=== PATIENT | female | born 1965 | race Caucasian/White ===

== ENCOUNTER 2017-07-19 12:39 | Emergency (ER) | payer OTHER ==
[~2017-07-19] VITALS: Ht 165.1 cm; Wt 78.1 kg
[~2017-07-19 12:39] MED LIST: NO HOME MEDS
[2017-07-19 13:12] LABS: HEMATOCRIT 40.4 % (36.0-46.0); MCH 28.1 PG (29.0-34.0); MCHC 32.7 G/DL (30.0-36.0); MCV 86.1 FL (83-99); MEAN PLAT.VOLUME 8.7 uM^3 (9.5-12.4); PLATELET COUNT 283 K/uL (156-360); RBC DIS.WIDTH-CV 12.9 % (11.8-14.6); RBC DIS.WIDTH-SD 40.4 % (39-53); RED BLOOD COUNT 4.69 M/uL (3.80-5.20); WHITE BLOOD COUNT 9.4 K/uL (4.1-10.2)
[2017-07-19 13:24] LABS: CHLORIDE 103 mEq/L (99-109); POTASSIUM 4.1 mEq/L (3.7-5.4); SODIUM 136 mEq/L (136-147)
[2017-07-19 13:26] LABS: GLUCOSE 92 mg/dL (70-99)
[2017-07-19 13:27] LABS: ANION GAP 13 MEQ/L (2-14)
[2017-07-19 13:30] LABS: GFR ESTIMATE (CALCULATED) > 59 mL/min/; UREA NITROGEN (BUN) 10 mg/dL (9-23)
[2017-07-19] MEDS ORDERED: PROVENTIL HFA6.7 GM IH (14:00)
[2017-07-19 14:14] VITALS: BP 110/74
[2017-07-21] MEDS ORDERED: VENTOLIN HFA18 GM IH (11:00)
[2017-07-21] MEDS ORDERED: KLONOPIN0.5 M1 PO (11:01)
[2017-07-21] MEDS ORDERED: PROZAC40 MG PO (11:01)
[2017-07-21] MEDS ORDERED: TESSALON PERLE100 MG PO (11:01)
[2017-07-21] MEDS ORDERED: CHILDREN'S FLO9.9 ML BOTH NARES (11:02)
[2017-07-21] MEDS ORDERED: LEVAQUIN750 MG PO (11:02)
[2017-07-21] MEDS ORDERED: PREDNISONE5 M1 PO (11:04)
[2017-07-21] MEDS ORDERED: ZOCOR40 MG PO (11:04)
[2017-07-21] MEDS ORDERED: TRAZODONE HCL50 MG PO (11:04)
== END 2017-07-19 14:15 | disposition home or self-care (01) ==
LOC: EME 12:39
DX: R91.8 Other nonspecific abnormal finding of lung field (principal); F17.200 Nicotine dependence, unspecified, uncomplicated; I10 Essential (primary) hypertension; Z88.0 Allergy status to penicillin
CPT/HCPCS: 80048; 85027; 93005; 94640; 99281; 99284

== ENCOUNTER → 2017-07-22 | Outpatient (CLI) | payer OTHER ==
[~2017-07-22] VITALS: Ht 165.1 cm; Wt 78.0 kg
[~2017-07-22] MED LIST changes: +CHILDREN'S FLO9.9 ML BOTH NARES; +KLONOPIN0.5 M1 PO; +LEVAQUIN750 MG PO; +PREDNISONE5 M1 PO; +PROVENTIL HFA6.7 GM IH; +PROZAC40 MG PO; +TESSALON PERLE100 MG PO; +TRAZODONE HCL50 MG PO; +VENTOLIN HFA18 GM IH; +ZOCOR40 MG PO
== END | disposition home or self-care (01) ==
LOC: OPR 12:38 → EDSTATUS 13:00
PROC: 0BBF3ZX Excision of Right Lower Lung Lobe, Percutaneous Approach, Diagnostic (ICD-10-PCS; principal; 2017-07-22)
DX: C34.31 Malignant neoplasm of lower lobe, right bronchus or lung (principal); F17.210 Nicotine dependence, cigarettes, uncomplicated; Z80.1 Family history of malignant neoplasm of trachea, bronchus and lung; F43.10 Post-traumatic stress disorder, unspecified; F32.9 Major depressive disorder, single episode, unspecified; E78.5 Hyperlipidemia, unspecified; Z86.010 Personal history of colon polyps; Z88.0 Allergy status to penicillin; Z80.8 Family history of malignant neoplasm of other organs or systems
CPT/HCPCS: 71010; 77012; 88305; 88341 TC; 88342 TC; J3010

== ENCOUNTER 2017-08-05 06:52 | Day surgery (SDC) | payer OTHER ==
[~2017-08-05] VITALS: Ht 165.1 cm; Wt 78.1 kg
[~2017-08-05 06:52] MED LIST changes: +ALBUTEROL2.5 MG/0.5 IH; +ALLERGY RELIE15.8 ML BOTH NARES; +ANORO ELLIPTA1 EACH IH; +CHANTIX1 MG PO; +PREDNISONE10 MG PO; +ZITHROMAX500 MG PO
[2017-08-05 07:14] VITALS: BP 114/57
[2017-08-05 07:23] LABS: BASOPHIL COUNT 0.1 K/uL (0-0.1); EOSINOPHIL COUNT 0.1 K/uL (0-0.3); HEMATOCRIT 38.5 % (36.0-46.0); IMMATURE GRANULOCYTE (%) 0.3 % (0.0-0.7); INSTRUMENT ABS NEUTROPHIL CT 8.2 K/uL; LYMPHOCYTE COUNT 3.5 K/uL (1.0-2.8); MCH 27.8 PG (29.0-34.0); MCHC 32.2 G/DL (30.0-36.0); MCV 86.3 FL (83-99); MEAN PLAT.VOLUME 8.8 uM^3 (9.5-12.4); MONOCYTE (%) 3.9 % (3-12); MONOCYTE COUNT 0.5 K/uL (0-0.8); NEUTROPHIL (%) 65.8 % (45-76); NEUTROPHIL COUNT 8.2 K/uL (1.8-6.4); PLATELET COUNT 311 K/uL (156-360); RBC DIS.WIDTH-CV 13.2 % (11.8-14.6); RBC DIS.WIDTH-SD 41.1 % (39-53); RED BLOOD COUNT 4.46 M/uL (3.80-5.20); WHITE BLOOD COUNT 12.4 K/uL (4.1-10.2)
[2017-08-05 07:30] LABS: PROTHROMBIN TIME 11.4 SEC (10.2-12.9)
[2017-08-05 07:49] LABS: ALKALINE PHOSPHATASE 96 IU/L (3-129); ANION GAP 9 MEQ/L (2-14); CHLORIDE 107 MEQ/L (99-109); GFR ESTIMATE (CALCULATED) > 59 mL/min/; GLUCOSE 93 mg/dL (70-99); POTASSIUM 4.1 MEQ/L (3.7-5.4); SAMPLE HEMOLYSIS CHECK 0; SAMPLE ICTERIC CHECK 0; SAMPLE LIPEMIA CHECK 0; SODIUM 141 MEQ/L (136-147); TOTAL BILIRUBIN 0.3 MG/DL (0.0-1.0); UREA NITROGEN (BUN) 11 mg/dL (9-23)
[2017-08-05] MEDS ORDERED: HYDROCODON-ACE1 EAC7 PO (11:08)
[2017-08-05] MEDS ORDERED: COLACE100 MG PO (11:08)
[2017-08-05 12:16] VITALS: BP 100/58
[2017-08-05 13:14] VITALS: BP 99/55
[2017-08-05 14:55] VITALS: BP 111/64
== END 2017-08-05 15:00 | disposition home or self-care (01) ==
LOC: SDC 06:52
PROVIDERS: Thoracic Surgery (Cardiothoracic Vascular Surgery)
DX: C34.31 Malignant neoplasm of lower lobe, right bronchus or lung (principal); E78.5 Hyperlipidemia, unspecified; F32.9 Major depressive disorder, single episode, unspecified; Z80.1 Family history of malignant neoplasm of trachea, bronchus and lung; Z88.0 Allergy status to penicillin; F17.200 Nicotine dependence, unspecified, uncomplicated
CPT/HCPCS: 80053; 85025; 85610; 86850; 86900; 86901; 86920; 87070; 87205; 88305; 94640; J0330; J0690; J1100; J1170; J2250; J2405; J2710; J3010

== ENCOUNTER → 2017-08-15 | Outpatient (CLI) | payer OTHER ==
[~2017-08-15] MED LIST changes: +COLACE100 MG PO; +HYDROCODON-ACE1 EAC7 PO
[2017-08-15 08:43] LABS: BASE EXCESS 0.9 mEq/L (-3 to +3); BICARBONATE 24.2 mEq/L (22-26); CARBOXY HGB 2.7 % (0-5); METHEMOGLOBIN 1.1 % (0-1.5); PCO2 34 mm Hg (35-45); PO2 70 mm Hg (80-100); pH 7.46 (7.35-7.45)
[2017-08-15 08:44] LABS: COMMENTS - BLOOD GASES +C; FI02 21 %; SITE RR +A; TOTAL RESP RATE 22 resp/min
== END | disposition home or self-care (01) ==
LOC: RES 07:41
PROVIDERS: Thoracic Surgery (Cardiothoracic Vascular Surgery)
DX: J98.4 Other disorders of lung (principal); R94.2 Abnormal results of pulmonary function studies; C34.90 Malignant neoplasm of unspecified part of unspecified bronchus or lung
CPT/HCPCS: 36600; 82803; 93005; 94060; 94726; 94729

== ENCOUNTER 2017-11-09 21:11 | Inpatient (IN) | payer OTHER ==
[~2017-11-09] VITALS: Ht 165.1 cm; Wt 80.2 kg
[~2017-11-09 21:11] MED LIST changes: +IMODIUM A-D2 M2 PO; +TARCEVA150 MG PO
[2017-11-10 07:16] VITALS: BP 113/56
[2017-11-10 19:45] VITALS: BP 100/56
[2017-11-10 20:00] VITALS: BP 110/68
[2017-11-10 21:00] VITALS: BP 87/57
[2017-11-10 22:00] VITALS: BP 98/62
[2017-11-10 23:00] VITALS: BP 93/66
[2017-11-11] VITALS (15 sets, daily range): BP systolic 0–149; BP diastolic 0–80
[2017-11-11 07:54] LABS: HEMATOCRIT 27.8 % (36.0-46.0); MCH 28.8 PG (29.0-34.0); MCHC 32.4 G/DL (30.0-36.0); MCV 88.8 FL (83-99); RBC DIS.WIDTH-CV 14.4 % (11.8-14.6); RBC DIS.WIDTH-SD 46.3 % (39-53); WHITE BLOOD COUNT 9.1 K/uL (4.1-10.2)
[2017-11-11 08:05] LABS: PLATELET COUNT 176 K/uL (156-360); RED BLOOD COUNT 3.13 M/uL (3.80-5.20)
[2017-11-11 08:13] LABS: CHLORIDE 105 MEQ/L (99-109); CREATININE 0.8 MG/DL (0.6-1.3); GFR ESTIMATE (CALCULATED) > 59 mL/min/; GLUCOSE 121 mg/dL (70-99); POTASSIUM 4.6 MEQ/L (3.7-5.4); SODIUM 137 MEQ/L (136-147); UREA NITROGEN (BUN) 8 mg/dL (9-23)
[2017-11-12] VITALS (23 sets, daily range): BP systolic 86–145; BP diastolic 51–97
[2017-11-12 05:04] LABS: HEMATOCRIT 27.9 % (36.0-46.0); HEMOGLOBIN 8.9 G/DL (11.9-15.5); MCH 28.5 PG (29.0-34.0); MCHC 31.9 G/DL (30.0-36.0); MCV 89.4 FL (83-99); PLATELET COUNT 203 K/uL (156-360); RBC DIS.WIDTH-CV 14.3 % (11.8-14.6); RBC DIS.WIDTH-SD 46.8 % (39-53); RED BLOOD COUNT 3.12 M/uL (3.80-5.20); WHITE BLOOD COUNT 11.1 K/uL (4.1-10.2)
[2017-11-12 05:17] LABS: CHLORIDE 108 mEq/L (99-109); POTASSIUM 4.7 mEq/L (3.7-5.4); SODIUM 137 mEq/L (136-147)
[2017-11-12 05:18] LABS: GLUCOSE 122 mg/dL (70-99)
[2017-11-12 05:22] LABS: CREATININE 1.1 mg/dL (0.6-1.3); GFR ESTIMATE (CALCULATED) 55 mL/min/
[2017-11-12 05:23] LABS: UREA NITROGEN (BUN) 13 mg/dL (9-23)
[2017-11-13] VITALS (24 sets, daily range): BP systolic 77–117; BP diastolic 44–68
[2017-11-13 05:41] LABS: HEMATOCRIT 25.9 % (36.0-46.0); HEMOGLOBIN 8.2 G/DL (11.9-15.5); MCH 28.3 PG (29.0-34.0); MCHC 31.7 G/DL (30.0-36.0); MCV 89.3 FL (83-99); PLATELET COUNT 171 K/uL (156-360); RBC DIS.WIDTH-CV 14.4 % (11.8-14.6); WHITE BLOOD COUNT 9.9 K/uL (4.1-10.2)
[2017-11-13 06:01] LABS: CHLORIDE 106 MEQ/L (99-109); CREATININE 0.7 MG/DL (0.6-1.3); GFR ESTIMATE (CALCULATED) > 59 mL/min/; GLUCOSE 122 mg/dL (70-99); POTASSIUM 4.5 MEQ/L (3.7-5.4); SODIUM 139 MEQ/L (136-147); UREA NITROGEN (BUN) 9 mg/dL (9-23)
[2017-11-14] VITALS (13 sets, daily range): BP systolic 90–123; BP diastolic 50–77
[2017-11-14 06:26] LABS: HEMATOCRIT 24.9 % (36.0-46.0); HEMOGLOBIN 7.8 G/DL (11.9-15.5); MCH 27.9 PG (29.0-34.0); MCHC 31.3 G/DL (30.0-36.0); MCV 88.9 FL (83-99); PLATELET COUNT 193 K/uL (156-360); RBC DIS.WIDTH-SD 45.1 % (39-53); WHITE BLOOD COUNT 7.4 K/uL (4.1-10.2)
[2017-11-14 06:45] LABS: CHLORIDE 104 MEQ/L (99-109); CREATININE 0.8 MG/DL (0.6-1.3); GFR ESTIMATE (CALCULATED) > 59 mL/min/; GLUCOSE 99 mg/dL (70-99); POTASSIUM 4.6 MEQ/L (3.7-5.4); SODIUM 142 MEQ/L (136-147); UREA NITROGEN (BUN) 8 mg/dL (9-23)
[2017-11-15] VITALS (10 sets, daily range): BP systolic 115–142; BP diastolic 65–92
[2017-11-15 05:55] LABS: HEMATOCRIT 24.8 % (36.0-46.0); MCH 28.1 PG (29.0-34.0); MCHC 32.3 G/DL (30.0-36.0); PLATELET COUNT 218 K/uL (156-360); RBC DIS.WIDTH-CV 13.9 % (11.8-14.6); RBC DIS.WIDTH-SD 43.8 % (39-53); RED BLOOD COUNT 2.85 M/uL (3.80-5.20); WHITE BLOOD COUNT 6.8 K/uL (4.1-10.2)
[2017-11-15 06:20] LABS: CHLORIDE 104 MEQ/L (99-109); CREATININE 0.9 MG/DL (0.6-1.3); GFR ESTIMATE (CALCULATED) > 59 mL/min/; GLUCOSE 110 mg/dL (70-99); POTASSIUM 4.2 MEQ/L (3.7-5.4); SODIUM 140 MEQ/L (136-147); UREA NITROGEN (BUN) 9 mg/dL (9-23)
[2017-11-16] VITALS: BP 114/75
[2017-11-16 05:00] VITALS: BP 141/73
[2017-11-16 08:00] VITALS: BP 134/64
[2017-11-16 12:00] VITALS: BP 134/65
[2017-11-16 17:15] VITALS: BP 136/68
[2017-11-16 19:20] VITALS: BP 125/60
[2017-11-17] VITALS (7 sets, daily range): BP systolic 116–130; BP diastolic 60–72
[2017-11-18 00:09] VITALS: BP 114/60; BP 126/62
[2017-11-18 05:11] LABS: HEMOGLOBIN 9.6 G/DL (11.9-15.5); MCH 28.2 PG (29.0-34.0); PLATELET COUNT 279 K/uL (156-360); RBC DIS.WIDTH-CV 14.1 % (11.8-14.6); RBC DIS.WIDTH-SD 45.6 % (39-53); RED BLOOD COUNT 3.41 M/uL (3.80-5.20); WHITE BLOOD COUNT 8.7 K/uL (4.1-10.2)
[2017-11-18 05:42] LABS: CHLORIDE 102 MEQ/L (99-109); CREATININE 0.7 MG/DL (0.6-1.3); GFR ESTIMATE (CALCULATED) > 59 mL/min/; GLUCOSE 112 mg/dL (70-99); POTASSIUM 4.2 MEQ/L (3.7-5.4); SODIUM 141 MEQ/L (136-147); UREA NITROGEN (BUN) 8 mg/dL (9-23)
[2017-11-18 07:34] VITALS: BP 107/59
[2017-11-18 11:28] VITALS: BP 118/58
[2017-11-18] MEDS ORDERED: MOTRIN600 MG PO (20:13)
[2017-11-18] MEDS ORDERED: HYDROCODON-ACE1 EAC7 PO (20:13)
[2017-11-18] MEDS ORDERED: K-DUR20 MEQ PO (20:13)
[2017-11-18] MEDS ORDERED: DIGOXIN250 MCG PO (20:13)
[2017-11-18] MEDS ORDERED: FUROSEMIDE20 MG PO (20:13)
[2017-11-18] MEDS ORDERED: LOPRESSOR25 MG PO (20:13)
[2017-11-19 00:27] VITALS: BP 123/68
[2017-11-19 06:17] LABS: HEMATOCRIT 33.1 % (36.0-46.0); HEMOGLOBIN 10.6 G/DL (11.9-15.5); MCV 87.3 FL (83-99); PLATELET COUNT 322 K/uL (156-360); RBC DIS.WIDTH-CV 14.1 % (11.8-14.6); RBC DIS.WIDTH-SD 44.8 % (39-53); RED BLOOD COUNT 3.79 M/uL (3.80-5.20); WHITE BLOOD COUNT 8.4 K/uL (4.1-10.2)
[2017-11-19 06:44] LABS: CHLORIDE 103 MEQ/L (99-109); CREATININE 0.8 MG/DL (0.6-1.3); GFR ESTIMATE (CALCULATED) > 59 mL/min/; GLUCOSE 104 mg/dL (70-99); POTASSIUM 4.4 MEQ/L (3.7-5.4); SODIUM 141 MEQ/L (136-147); UREA NITROGEN (BUN) 8 mg/dL (9-23)
[2017-11-19 08:28] VITALS: BP 131/63
[2017-11-19 08:48] VITALS: BP 132/70
== END 2017-11-19 10:35 | disposition home or self-care (01) | DRG 165 ==
LOC: ENRESERV 21:11 → 4WEST 11-10 06:33 → 2SOUTH 11-10 06:33 → ENRESERV 11-10 15:46 → 2SOUTH 11-10 15:46 → ENRESERV 11-10 19:11 → 4WEST 11-10 19:23 → ENRESERV 11-16 14:00 → CANRESERV 11-16 14:00 → ENRESERV 11-16 14:57 → 5EAST 11-16 16:35 → ENPENDDIS 11-19 → 5EAST 11-19 10:35
PROVIDERS: Thoracic Surgery (Cardiothoracic Vascular Surgery)
PROC: 4A133B1 Monitoring of Arterial Pressure, Peripheral, Percutaneous Approach (ICD-10-PCS; principal; 2017-11-10)
PROC: 07B70ZX Excision of Thorax Lymphatic, Open Approach, Diagnostic (ICD-10-PCS; principal; 2017-11-10)
PROC: 00HU33Z Insertion of Infusion Device into Spinal Canal, Percutaneous Approach (ICD-10-PCS; principal; 2017-11-10)
PROC: 3E0S3BZ Introduction of Anesthetic Agent into Epidural Space, Percutaneous Approach (ICD-10-PCS; principal; 2017-11-10)
PROC: 03HY32Z Insertion of Monitoring Device into Upper Artery, Percutaneous Approach (ICD-10-PCS; principal; 2017-11-10)
PROC: 02U Heart and Great Vessels, Supplement (ICD-10-PCS; principal; 2017-11-10)
PROC: 0BTK0ZZ Resection of Right Lung, Open Approach (ICD-10-PCS; principal; 2017-11-10)
DX: C34.81 Malignant neoplasm of overlapping sites of right bronchus and lung (principal); J44.9 Chronic obstructive pulmonary disease, unspecified; E78.5 Hyperlipidemia, unspecified; F32.9 Major depressive disorder, single episode, unspecified; R41.0 Disorientation, unspecified; E66.9 Obesity, unspecified; Z68.29 Body mass index [BMI] 29.0-29.9, adult; Z86.018 Personal history of other benign neoplasm; Z80.1 Family history of malignant neoplasm of trachea, bronchus and lung; Z87.891 Personal history of nicotine dependence; Z92.21 Personal history of antineoplastic chemotherapy
CPT/HCPCS: 36415; 71045; 80048; 80053; 83735; 85025; 85027; 85610; 85730; 86850; 86900; 86901; 86920; 87641; 88300; 88302; 88305; 88309; 94002; 94010; 94640; 94640 76; 94760; 94799; 97530 GO; 99202; J0330; J0690; J1100; J1160; J1170; J1200; J1630; J1644; J1885; J2250; J2370; J2405; J2710; J3010; J7050; J7120; P9045; Q0175; S0020